=== PATIENT | female | born 1980 ===

== ENCOUNTER 2018-10-09 22:01 | Emergency (ER) | payer BC ==
[2018-10-09 22:15] VITALS: BP 113/77
[2018-10-10] MEDS ORDERED: ULTRAM ONE (03:04)
[2018-10-10] MEDS ORDERED: DECADRON ONE (03:04)
[2018-10-10] MEDS ORDERED: ULTRAM PO ONE (03:04)
[2018-10-10] MEDS ORDERED: FLEXERIL ONE (03:04)
[2018-10-10] MEDS ORDERED: FLEXERIL PO ONE (03:04)
[2018-10-10] MEDS ORDERED: DECADRON IM ONE (03:24)
--- NOTE | 2018-10-10 04:53 | Emergency Department Report ---
ED Back Pain/Injury HPI - General Chief Complaint: Back Pain/Injury Stated Complaint: BACK SPASMS Time Seen by Provider: 10/10/18 04:47 Source: patient Limitations: No Limitations - History of Present Illness Initial Comments: The patient is a 37-year-old -Faro[place] female with history of low back pain with sciatica radiating to left lower extremity patient presents for e xacerbation of same tonight at 5/10 pain radiating to left lower leg patient denies injury or trauma . 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 MD Complaint: back pain Onset/Timin -: days(s) Similar Symptoms Previously: Yes Place: home Radiation: left leg Severity: moderate Severity scale (0 -10): 5 Quality: aching Consistency: intermittent Improves With: medication Worsens With: movement, other (bending twisting ) Context: while lifting, turning/twisting, bending Associated Symptoms: denies: numbness, difficulty urinating, diaphoresis, incontinence, fever/chills, constipation, nausea/vomiting, rash - Related Data Previous Rx's Medication Instructions Recorded Last Taken Type Cyclobenzaprine [Flexeril] 10 mg PO TID PRN #30 tablet 10/10/18 Unknown Rx Menthol/Camphor [[place] 1 applicatio TP QID PRN #1 tube 10/10/18 Unknown Rx Ointment] Naproxen [Naprosyn] 500 mg PO BID PRN #30 tablet 10/10/18 Unknown Rx Allergies Allergy/AdvReac Type Severity Reaction Status Date / Time Penicillins Allergy Unknown Verified 10/09/18 22:48 ED Review of Systems ROS: Stated complaint: BACK SPASMS Other details as noted in HPI Constitutional: denies: chills, fever Eyes: denies: eye pain, eye discharge, vision change ENT: denies: ear pain, throat pain Respiratory: denies: cough, shortness of breath, wheezing Cardiovascular: denies: chest pain, palpitations Endocrine: no symptoms reported Gastrointestinal: denies: abdominal pain, nausea, diarrhea Genitourinary: denies: urgency, dysuria, discharge Musculoskeletal: back pain. denies: joint swelling, arthralgia Skin: denies: rash, lesions Neurological: denies: headache, weakness, paresthesias Psychiatric: denies: anxiety, depression Hematological/Lymphatic: denies: easy bleeding, easy bruising ED Past Medical Hx - Past Medical History Previous Medical History?: No Additional medical history: CHRONIC BACK PAIN - Surgical History Past Surgical History?: Yes Additional Surgical History: 2 C-SECTIONS, LEFT EAR - Social History Smoking Status: Never Smoker Substance Use Type: None - Medications Home Medications: Home Medications Medication Instructions Recorded Confirmed Last Taken Type Cyclobenzaprine [Flexeril] 10 mg PO TID PRN #30 tablet 10/10/18 Unknown Rx Menthol/Camphor [[place] 1 applicatio TP QID PRN #1 tube 10/10/18 Unknown Rx Ointment] Naproxen [Naprosyn] 500 mg PO BID PRN #30 tablet 10/10/18 Unknown Rx ED Physical Exam - General Limitations: No Limitations General appearance: alert, in no apparent distress - Head Head exam: Present: atraumatic, normocephalic - Eye Eye exam: Present: normal appearance, PERRL, EOMI - ENT ENT exam: Present: mucous membranes moist - Neck Neck exam: Present: normal inspection - Respiratory Respiratory exam: Present: normal lung sounds bilaterally. Absent: respiratory distress, stridor - Cardiovascular Cardiovascular Exam: Present: regular rate, normal rhythm. Absent: normal heart sounds, systolic murmur, diastolic murmur, rubs, gallop - GI/Abdominal GI/Abdominal exam: Present: soft, normal bowel sounds. Absent: tenderness, rebound, bruit, hernia - Rectal Rectal exam: Present: deferred - Extremities Exam Extremities exam: Present: normal inspection - Back Exam Back exam: Present: normal inspection, full ROM, tenderness (left lateral low back muscl pain to deep palpation ), muscle spasm, paraspinal tenderness. Absent: CVA tenderness (R), CVA tenderness (L), vertebral tenderness, rash noted - Expanded Back Exam Expanded Back exam: Present: other (no posterior vertebral point tenderness no pos straight leg left no deformity no swelling ecchymosis no weakness ). Absent: saddle anesthesia Back exam: Sciatic Notch Tenderness: Left, Positive Straight Leg Raise: Left, Negative Straight Leg Raising: Right - Neurological Exam Neurological exam: Present: alert, oriented X3, CN II-XII intact, normal gait, reflexes normal. Absent: motor sensory deficit - Psychiatric Psychiatric exam: Present: normal affect, normal mood - Skin Skin exam: Present: warm, dry, intact, normal color. Absent: rash ED Course Vital Signs 10/09/18 10/09/18 22:05 22:45 Temperature 97.9 F 97.9 F Pulse Rate 105 H 95 H Respiratory 18 18 Rate Blood Pressure 113/77 113/77 O2 Sat by Pulse 98 99 Oximetry ED Medical Decision Making - Medical Decision Making This is acute exacerbation of chronic low back pain with left-sided sciatica pain improved with NSAIDs given in ED plan DC to home with NSAIDs muscle relaxants analgesic balm moist heat therapy patient will follow with PCP in 2-3 days return to emergency should symptoms worsen patient is currently alert and oriented 3 ambulatory and steady gait Critical care attestation.: If time is entered above; I have spent that time in minutes in the direct care of this critically ill patient, excluding procedure time. ED Disposition Clinical Impression: Low back strain Qualifiers: Encounter type: initial encounter Qualified Code(s): S39.012A - Strain of muscle, fascia and tendon of lower back, initial encounter Disposition: DC-01 TO HOME OR SELFCARE Is pt being admited?: No Does the pt Need Aspirin: No Condition: Stable Instructions: Low Back Strain (ED), Core Strengthening Exercises (GEN), Chronic Back Pain (ED) Prescriptions: Cyclobenzaprine [Flexeril] 10 mg PO TID PRN #30 tablet PRN Reason: Muscle Spasm Menthol/Camphor [[place] Ointment] 1 applicatio TP QID PRN #1 tube PRN Reason: pain Naproxen [Naprosyn] 500 mg PO BID PRN #30 tablet PRN Reason: pain Referrals: [facility] [Outside] - 3-5 Days PRIMO SWANSON MD [Staff Physician] - 3-5 Days Forms: Work/School Release Form(ED) Time of Disposition: 05:03
== END 2018-10-10 05:13 | disposition home or self-care (01) ==
LOC: ED 22:01
DX: S39.012A Strain of muscle, fascia and tendon of lower back, initial encounter (principal); Z88.0 Allergy status to penicillin; X58.XXXA Exposure to other specified factors, initial encounter; Y93.89 Activity, other specified; Y92.89 Other specified places as the place of occurrence of the external cause; Y99.8 Other external cause status
CPT/HCPCS: 96372; 99282; J1100

== ENCOUNTER 2019-06-07 16:47 | Emergency (ER) | payer BC, OTHER ==
[2019-06-07 16:54] VITALS: BP 114/73
--- NOTE | 2019-06-07 17:39 | XRay Report ---
LEFT KNEE 3 VIEW(S) INDICATION / CLINICAL INFORMATION: Medial knee pain after fall 2 days ago COMPARISON: None available. FINDINGS: BONES / JOINT(S): No acute fracture or subluxation. No significant arthritis. SOFT TISSUES: No significant abnormality. Signer Name: Nakul Montesinos MD Signed: 06/07/2019 5:34 PM Workstation Name: [id number]
--- NOTE | 2019-06-07 17:51 | Event Note ---
ED Screening Note ED Screening Note: This initial assessment/diagnostic orders/clinical plan/treatment(s) is/are subject to change based on patients health status, clinical progression and re- assessment by fellow clinical providers in the ED. Further treatment and workup at subsequent clinical providers discretion. Patient/guardian urged not to elope from the ED as their condition may be serious if not clinically assessed and managed. Initial orders 38 yo black female states that she slipped and fell on her knee 2 days ago. Her pain has progressed to burning and aching. She has difficulty walking and standing. <ARIANA DE LUNA - Last Filed: 06/07/19 17:23> ED Screening Note: This initial assessment/diagnostic orders/clinical plan/treatment(s) is/are subject to change based on patients health status, clinical progression and re- assessment by fellow clinical providers in the ED. Further treatment and workup at subsequent clinical providers discretion. Patient/guardian urged not to elope from the ED as their condition may be serious if not clinically assessed and managed. Initial orders include: <VIRGEN GONZALEZ - Last Filed: 06/07/19 18:27>
[2019-06-07] MEDS ORDERED: IBUPROFEN 800 MG TAB PO ONE (18:04)
--- NOTE | 2019-06-07 18:06 | Emergency Department Report ---
ED Back Pain/Injury HPI - General Chief Complaint: Extremity Problem,Nontraumatic Stated Complaint: LT KNEE INJURY Time Seen by Provider: 06/07/19 18:03 Source: patient Limitations: No Limitations - History of Present Illness Initial Comments: 38 YO AA FEMALE SP GLF ON TUES. SLIPPED ON BLEACH AT WORK. LANDED ON KNEE. SAW RN AT WORK WHO GAVE HER SHOT AND KELLY. SHE STATES KELLY MADE HER LEG SWELL. AMBULATORY TO ER TODAY. Complaint: fall -: Sudden Similar Symptoms Previously: No Place: work Radiation: none Quality: burning Consistency: constant Improves With: immobilization Worsens With: movement Associated Symptoms: denies other symptoms - Related Data Previous Rx's Medication Instructions Recorded Last Taken Type Cyclobenzaprine [Flexeril] 10 mg PO TID PRN #30 tablet 10/10/18 Unknown Rx Menthol/Camphor [[place] 1 applicatio TP QID PRN #1 tube 10/10/18 Unknown Rx Ointment] Naproxen [Naprosyn] 500 mg PO BID PRN #30 tablet 10/10/18 Unknown Rx Ibuprofen [Motrin] 800 mg PO Q8HR PRN #30 tablet 06/07/19 Unknown Rx Allergies Allergy/AdvReac Type Severity Reaction Status Date / Time Penicillins Allergy Unknown Verified 10/09/18 22:48 ED Review of Systems ROS: Stated complaint: LT KNEE INJURY Other details as noted in HPI Comment: All other systems reviewed and negative ED Past Medical Hx - Past Medical History CHRONIC BACK PAIN Surgical history: no surgical history Psychiatric history: no pertinent history ED Back Pain Physical Exam - Exam General: Vital signs noted. No distress. Alert and acting appropriately. Back/Abdomen: No Abdominal Tenderness, No Perithoracic Tenderness, No Perilumbar Tenderness, No Sacroiliac Tenderness, No Flank Tenderness, No Straight Leg Raise Pain Neuro: Yes Normal Sensation, Yes Normal DTR's, Yes Normal Gait, No Motor Weakness ED Course Vital Signs 06/07/19 16:50 Temperature 98.0 F Pulse Rate 102 H Respiratory 16 Rate Blood Pressure 114/73 [Right] O2 Sat by Pulse 98 Oximetry Ed Back Pain Tests - Tests Tests: Normal X Rays ED Medical Decision Making - Radiology Data Radiology results: report reviewed, image reviewed - Medical Decision Making XRAY NEG NO EFFUSION ON EXAM NEUROVASC INTACT PAIN LIMITING AMBULATION IMOBILIZER/CRUTCHES MOTRIN FOR PAIN FOLLOW UP WITH DR SWANSON. DC HOME Vital Signs 06/07/19 16:50 Temperature 98.0 F Pulse Rate 102 H Respiratory 16 Rate Blood Pressure 114/73 [Right] O2 Sat by Pulse 98 Oximetry - Differential Diagnosis RO FX PATELLA Critical care attestation.: If time is entered above; I have spent that time in minutes in the direct care of this critically ill patient, excluding procedure time. ED Disposition Clinical Impression: Fall, Knee contusion Disposition: DC-01 TO HOME OR SELFCARE Is pt being admited?: No Does the pt Need Aspirin: No Condition: Stable Instructions: Knee Pain (ED) Additional Instructions: REST ICE ELEVATE IMMOBILIZE KNEE FOR PAIN MOTRIN FOR PAIN FOLLOW UP WITH DR SWANSON REFERRAL BELOW YOU SHOULD CALL IN AM FOR APPNT. XRAY NORMAL Prescriptions: Ibuprofen [Motrin] 800 mg PO Q8HR PRN #30 tablet PRN Reason: Pain, Moderate (4-6) Referrals: PRIMO SWANSON MD [Staff Physician] - 3-5 Days Time of Disposition: 18:05
== END 2019-06-07 18:30 | disposition home or self-care (01) ==
LOC: ED 16:47
DX: S80.02XA Contusion of left knee, initial encounter (principal); Z88.0 Allergy status to penicillin; W01.0XXA Fall on same level from slipping, tripping and stumbling without subsequent striking against object, initial encounter; Y93.89 Activity, other specified; Y92.89 Other specified places as the place of occurrence of the external cause; Y99.8 Other external cause status